=== PATIENT | male | born 1970 | race African-American/Black ===

== ENCOUNTER 2019-04-25 18:46 | Emergency (ER) | payer BC ==
[~2019-04-25] VITALS: Ht 188 cm; Wt 117.9 kg
[~2019-04-25 18:46] MED LIST: ASPIRIN EC325 M1 PO; CARVEDILOL12.5 MG PO; FLEXERIL PO; GLYBURIDE 2.52.5 MG PO; HYDROCODON-ACE1 EAC7 PO; LISINOPRIL20 MG PO; METFORMIN HCL500 MG PO; NOHOMEMEDICATIONS; TRIAMTERENE-HC1 EAC2 PO
[2019-04-25 19:56] LABS: ABSOLUTE BASOPHILS 0.1 thou/uL (0.0-0.2); ABSOLUTE LYMPHOCYTES 2.8 thou/uL (0.8-5.3); ABSOLUTE NEUTROPHILS 5.6 thou/uL (1.6-8.1); LYMPHOCYTES 27.8 %; MCH 30.6 pg (26.0-34.0); WBC 10.1 thou/uL (4.0-11.0)
[2019-04-25 19:59] LABS: ABSOLUTE EOSINOPHILS 0.6 thou/uL (0.0-0.7); BASOPHILS 1.3 %; EOSINOPHILS 5.5 %; HEMATOCRIT 54.5 % (42.0-52.0); HEMOGLOBIN 18.2 gm/dL (14.0-18.0); MCHC 33.4 g/dL (28.0-37.0); MCV 91.6 fL (80.0-100.0); MONOCYTES 10.1 %; MPV 10.8 fl. (7.2-11.1); NUCLEATED RBCS 0 /100WBC; PLATELET COUNT* 146 thou/uL (150-400); POLYS 55.3 %; RBC 5.95 mil/uL (4.50-6.00); RDW-CV 14.2 % (10.5-14.5)
[2019-04-25 20:03] LABS: CALCIUM 9.1 mg/dL (8.5-10.1); CREATININE 1.8 mg/dL (0.6-1.3); POTASSIUM 4.4 mmol/L (3.5-5.1)
[2019-04-25 20:08] LABS: ALBUMIN 3.7 g/dL (3.4-5.0); TOTAL BILIRUBIN 0.6 mg/dL (<0.1-1.0); TOTAL PROTEIN 7.9 g/dL (6.4-8.2)
[2019-04-25] MEDS ORDERED: NORCO 5-325 TA1 EAC1 PO (22:18)
[2019-04-25] MEDS ORDERED: CYCLOBENZAPRINE5 MG PO (22:18)
[2019-04-25 22:36] VITALS: BP 150/100
--- NOTE | 2019-04-26 10:49 | EKG ---
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: [place] : 1970 Requested By: Oleg Esparza Order Number: [id number] MD: Mathieu Phillips Measurements Intervals [place] Rate: 112 P: 34 [place]: 139 QRS: 45 QRSD: 88 T: -2 QT: 338 QTc: 462 Interpretive Statements Sinus tachycardia Probable left atrial enlargement Borderline T abnormalities, inferior leads Compared to ECG 10/12/2015 08:35:10 T-wave abnormality now present Sinus rate has increased Electronically Signed On 04-26-2019 10:49:14 CDT by Mathieu Phillips [email or web address] <ELECTRONICALLY SIGNED> By: Mathieu Phillips MD, [facility] 04/26/19 1049 38 38 Mathieu Phillips MD, [facility] /EPI
== END 2019-04-25 22:39 | disposition home or self-care (01) ==
LOC: M.ERS 18:46
PROVIDERS: Nurse Practitioner Family
DX: S16.1XXA Strain of muscle, fascia and tendon at neck level, initial encounter (principal); S93.492A Sprain of other ligament of left ankle, initial encounter; M54.6 Pain in thoracic spine; I10 Essential (primary) hypertension; E11.9 Type 2 diabetes mellitus without complications; V43.52XA Car driver injured in collision with other type car in traffic accident, initial encounter; Y93.89 Activity, other specified; Y92.89 Other specified places as the place of occurrence of the external cause; Y99.8 Other external cause status

== ENCOUNTER 2019-10-11 00:02 | Emergency (ER) | payer BC ==
[~2019-10-11] VITALS: Ht 188 cm; Wt 124.7 kg
[~2019-10-11 00:02] MED LIST changes: +CYCLOBENZAPRINE5 MG PO; +NORCO 5-325 TA1 EAC1 PO
[2019-10-11] MEDS ORDERED: AMARYL4 MG PO (00:11)
[2019-10-11] MEDS ORDERED: ROSUVASTATIN CA10 MG PO (00:12)
[2019-10-11 00:37] LABS: ABSOLUTE BASOPHILS 0.1 thou/uL (0.0-0.2); ABSOLUTE EOSINOPHILS 0.6 thou/uL (0.0-0.7); ABSOLUTE LYMPHOCYTES 3.3 thou/uL (0.8-5.3); ABSOLUTE MONOCYTES 0.8 thou/uL (0.0-1.2); ABSOLUTE NEUTROPHILS 4.3 thou/uL (1.6-8.1); BASOPHILS 1.1 %; HEMATOCRIT 51.3 % (42.0-52.0); HEMOGLOBIN 17.3 gm/dL (14.0-18.0); LYMPHOCYTES 36.6 %; MCHC 33.7 g/dL (28.0-37.0); MCV 92.2 fL (80.0-100.0); MONOCYTES 8.9 %; MPV 10.1 fl. (7.2-11.1); NUCLEATED RBCS 0 /100WBC; PLATELET COUNT* 160 thou/uL (150-400); POLYS 47.4 %; RBC 5.57 mil/uL (4.50-6.00); WBC 9.2 thou/uL (4.0-11.0)
[2019-10-11 00:40] LABS: CALCIUM 8.8 mg/dL (8.5-10.1); CREATININE 1.7 mg/dL (0.6-1.3); POTASSIUM 4.4 mmol/L (3.5-5.1)
[2019-10-11 00:49] LABS: ALBUMIN 3.4 g/dL (3.4-5.0); TOTAL BILIRUBIN 0.6 mg/dL (<0.1-1.0); TOTAL PROTEIN 7.9 g/dL (6.4-8.2)
[2019-10-11] MEDS ORDERED: XANAX 0.25 MG0.25 MG PO (01:39)
[2019-10-11 01:42] VITALS: BP 142/99
--- NOTE | 2019-10-16 14:59 | EKG ---
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: : 1970 Requested By: Keila Nye Order Number: [id number] MD: Milton Dsouza Measurements Intervals [place] Rate: 114 P: 28 [place]: 145 QRS: 53 QRSD: 89 T: -5 QT: 346 QTc: 477 Interpretive Statements Sinus tachycardia Low voltage, precordial leads Borderline T abnormalities, inferior leads Borderline prolonged QT interval Compared to ECG 04/25/2019 19:39:47 Low QRS voltage now present T-wave abnormality still present Electronically Signed On 10-12-2019 10:23:07 CUSTOMER CARE CONSULTANT by Milton Dsouza [email or web address] <ELECTRONICALLY SIGNED> By: Milton Dsouza MD, [facility] 10/12/19 1023 0008 0008 Milton Dsouza MD, [facility] /EPI
== END 2019-10-11 01:42 | disposition home or self-care (01) ==
LOC: M.ERS 00:02
PROVIDERS: Personal Emergency Response Attendant
DX: E11.65 Type 2 diabetes mellitus with hyperglycemia (principal); R00.2 Palpitations; F41.0 Panic disorder [episodic paroxysmal anxiety]; I10 Essential (primary) hypertension

== ENCOUNTER 2021-01-22 01:38 | Emergency (ER) | payer OTHER ==
[~2021-01-22] VITALS: Ht 188 cm; Wt 120.2 kg
[~2021-01-22 01:38] MED LIST changes: +AMARYL4 MG PO; +ROSUVASTATIN CA10 MG PO; +XANAX 0.25 MG0.25 MG PO
[2021-01-22] MEDS ORDERED: LEXAPRO 10 MG T10 M2 PO ×2 (01:51→02:55)
[2021-01-22] MEDS ORDERED: LISINOPRIL20 MG PO (02:55)
[2021-01-22 03:01] VITALS: BP 116/76
--- NOTE | 2021-01-22 14:20 | EKG ---
[place] [address] ELECTROCARDIOGRAM REPORT Name: BRUCE SORIANO Room: [facility]#: [id number] Admission: 01/22/21 Attend Phys: Discharge: 01/22/21 Date of : 74 Date of Service: 01/22/21 0200 Report #: [id number] THIS REPORT FOR: //name// [facility] ED Test Date: 2021-01-22 Test Time: 02:00:36 Pat Name: BRUCE SORIANO Department: Room: Gender: Card Filer: [place] : 1970 Requested By: Emilia Quiros Order Number: [id number] MD: Jhonathan Ho Measurements Intervals [place] Rate: 107 P: 33 NM: 140 QRS: 48 QRSD: 91 T: -4 QT: 366 QTc: 489 Interpretive Statements Sinus tachycardia Probable left atrial enlargement Borderline prolonged QT interval Compared to ECG 10/11/2019 00:08:33 T-wave abnormality no longer present Electronically Signed On 01-22-2021 14:20:13 CDT by Jhonathan Ho [email or web address] <ELECTRONICALLY SIGNED> By: Jhonathan Ho MD, FACC 01/22/21 1420 0200 0200 Jhonathan Ho MD, [facility] /EPI
== END 2021-01-22 03:03 | disposition home or self-care (01) ==
LOC: M.ERS 01:38
DX: I10 Essential (primary) hypertension (principal); F41.9 Anxiety disorder, unspecified; E11.9 Type 2 diabetes mellitus without complications